=== PATIENT | male | born 1950 | race Caucasian/White ===

== ENCOUNTER 2017-10-01 15:00 | Emergency (ER) | payer MEDICARE, BC ==
[~2017-10-01] VITALS: Ht 175.3 cm; Wt 123.3 kg
[~2017-10-01 15:00] MED LIST: ASPIRIN 32325 MG/TAB PO; ASPIRIN 81M81 MG/TA2 PO; CELEBREX 200MG200 MG PO; CEPHALEXIN500 M1 PO; CRESTOR40 MG PO; FISH OIL 1000MG1 CAP PO; FISH OIL1000 MG PO; LIPITOR 80MG80 MG PO; LOPRESSOR 225 MG/TAB PO; LOTREL 10 MG-201 CAP PO; NITROQUICK0.4 MG SL; NITROSTAT0.4 MG/TAB SL; NORCO 325 MG-51 TAB PO; PLAVIX 75MG TAB75 MG PO; PRINIVIL10 MG PO; STATIN MED; TOPROL XL 25MG25 MG PO
[2017-10-01 15:44] LABS: BASO % 0.3 % (0.0-2.0); EOS # 0.2 (0.0-0.7); GRAN # 6.1 (1.4-6.5); GRAN % 63.9 % (42.2-75.2); HEMATOCRIT 44.3 % (42.0-52.0); HEMOGLOBIN 14.6 g/dl (13.5-18.0); LYMPH # 2.5 (1.2-3.4); MEAN CELL VOLUME 95 fl (80.0-100.0); MEAN CORPUSCULAR HEMOGLOBIN 31 pg (27.0-31.0); MEAN CORPUSCULAR HGB CONC 33 g/dl (33.0-37.0); MEAN PLATELET VOLUME 10.2 fl (7.4-10.4); MONO # 0.7 (0.1-0.6); MONO % 7.7 % (1.7-9.3); PLATELET COUNT 207 K/mm3 (130-400); RED BLOOD COUNT 4.69 M/mm3 (4.20-5.60); REDCELL DISTRIBUTION WIDTH-CV 12.3 % (11.5-14.5)
[2017-10-01 15:52] LABS: ALANINE AMINOTRANSFERASE 32 U/L (21-72); ALBUMIN 4.1 gm/dL (3.5-5.0); ALKALINE PHOSPHATASE 65 U/L (50-136); ANION GAP 13 mmol/L (7-16); AST,SGOT 26 U/L (15-37); BILIRUBIN,TOTAL 0.7 mg/dL (0.0-1.0); BLOOD UREA NITROGEN 18 mg/dL (9-20); CALCIUM 9.5 mg/dL (8.4-10.2); CARBON DIOXIDE 26 mmol/L (22-30); CHLORIDE 103 mmol/L (98-107); CREATININE, serum 0.99 mg/dL (0.66-1.25); GLUCOSE 104 mg/dL (74-106); LIPASE 144 U/L (23-300); SODIUM 142 mmol/L (137-145); TOTAL PROTEIN 7.6 gm/dL (6.4-8.2)
[2017-10-01 15:56] LABS: PROTHROMBIN TIME 11.2 SECONDS (9.7-12.8)
[2017-10-01 16:05] LABS: TROPONIN-I < 0.012 ng/mL (0.000-0.034)
[2017-10-01] MEDS ORDERED: NITROSTAT0.4 MG/TAB SL (17:24)
[2017-10-01 19:08] VITALS: BP 123/81; PULSE 53; TEMP 98.5
== END 2017-10-01 19:07 | disposition home or self-care (01) ==
LOC: COL.ER 15:00
PROVIDERS: Emergency Medicine
DX: R07.89 Other chest pain (principal); I10 Essential (primary) hypertension; E78.5 Hyperlipidemia, unspecified; I25.10 Atherosclerotic heart disease of native coronary artery without angina pectoris; Z90.49 Acquired absence of other specified parts of digestive tract; Z95.5 Presence of coronary angioplasty implant and graft; Z98.890 Other specified postprocedural states; M79.602 Pain in left arm; Z79.82 Long term (current) use of aspirin; Z79.02 Long term (current) use of antithrombotics/antiplatelets
CPT/HCPCS: J7030

== ENCOUNTER 2020-09-26 11:41 | Day surgery (SDC) | payer MEDICARE, BC ==
[2020-09-26] VITALS (9 sets, daily range): BP systolic 101–128; BP diastolic 67–93; PULSE 52–75; TEMP 98.9
[~2020-09-26] VITALS: Ht 180.3 cm; Wt 135.0 kg
[2020-09-26 12:47] LABS: HEMATOCRIT 42.5 % (42.0-52.0); HEMOGLOBIN 13.7 g/dl (13.5-18.0); MEAN CELL VOLUME 97 fl (80.0-100.0); MEAN CORPUSCULAR HEMOGLOBIN 31 pg (27.0-31.0); MEAN CORPUSCULAR HGB CONC 32 g/dl (33.0-37.0); MEAN PLATELET VOLUME 10.2 fl (7.4-10.4); PLATELET COUNT 188 K/mm3 (130-400); RED BLOOD COUNT 4.38 M/mm3 (4.20-5.60); REDCELL DISTRIBUTION WIDTH-CV 12.2 % (11.5-14.5)
[2020-09-26 12:52] LABS: PROTHROMBIN TIME 11.2 SECONDS (9.7-12.8)
[2020-09-26 12:55] LABS: PARTIAL THROMBOPLASTIN TIME 28.5 SECONDS (26.0-37.0)
[2020-09-26 12:57] LABS: CALCIUM 9.3 mg/dL (8.4-10.2); CREATININE, serum 0.96 (0.66-1.25); POTASSIUM 4.4 mmol/L (3.4-5.0)
[2020-09-26] MEDS ORDERED: ASPIRIN E.C. 8181 MG PO (13:39)
[2020-09-26] MEDS ORDERED: CRESTOR40 MG PO (13:39)
[2020-09-26] MEDS ORDERED: ZESTRIL 10MG10 MG PO (13:40)
[2020-09-26] MEDS ORDERED: FISH OIL1000 MG PO (13:40)
[2020-09-26] MEDS ORDERED: LOPRESSOR 225 MG/TAB PO (13:40)
[2020-09-26] MEDS ORDERED: PLAVIX 75MG TAB75 MG PO (14:44)
--- NOTE | 2020-09-26 17:37 | NUR ---
DC instructions reviewed with pt and , both express understanding. Air has been removed in 2 ml incrents with no bleeding or compication. Rt radial puncture site dressed with bandaid. Pt steady on feet when up to restroom. IV DC'd with catheter intact. He is assisted out to 's car by wheelchair with belongings.
== END 2020-09-26 17:38 | disposition home or self-care (01) ==
LOC: COL.CAR 11:41
PROVIDERS: Internal Medicine Interventional Cardiology
DX: I25.10 Atherosclerotic heart disease of native coronary artery without angina pectoris (principal); I10 Essential (primary) hypertension; E78.5 Hyperlipidemia, unspecified; Z79.82 Long term (current) use of aspirin; Z20.822 Contact with and (suspected) exposure to COVID-19; Z79.899 Other long term (current) drug therapy
CPT/HCPCS: C1769; J1644; J2250; J2405; J3010